=== PATIENT | female | born 1985 | race Caucasian/White ===

== ENCOUNTER 2017-10-21 18:10 | Emergency (ER) | payer OTHER | END 2017-10-21 19:03 | disposition home or self-care (01) | LOC: E/R 18:10 | DX: J02.0 Streptococcal pharyngitis (principal) | CPT/HCPCS: 99283; Z7502 ==

== ENCOUNTER 2018-10-22 19:05 | Emergency (ER) | payer OTHER ==
[2018-10-22 20:12] LABS: ADD MAN DIFF? NO
[2018-10-22 20:18] LABS: WHITE BLOOD COUNT 16.9 10^3/ul (4.8-10.8)
[2018-10-22 20:18] LABS: BASOPHIL # 0.1 10^3/ul (0.0-0.1); BASOPHILS % 0.4 % (0.0-2.0); HEMATOCRIT 39.5 % (37.0-47.0); HEMOGLOBIN 13.2 g/dl (12.0-16.0); MEAN CORPUSCULAR HEMOGLOBIN 29.7 pg (29.0-33.0); MEAN CORPUSCULAR HGB CONC 33.4 g/dl (32.0-37.0); MEAN CORPUSCULAR VOLUME 88.8 fl (82.0-101.0); MEAN PLATELET VOLUME 9.8 fl (7.4-10.4); MONOCYTES % 5.8 % (0.0-11.0); NEUTROPHIL # 14.7 10^3/ul (1.6-7.5); NEUTROPHILS % 86.9 % (39.0-77.0); PLATELET COUNT 291 10^3/UL (140-415); RED BLOOD COUNT 4.45 10^6/ul (4.20-5.40); RED CELL DISTRIBUTION WIDTH 12.4 % (11.5-14.5)
[2018-10-22] MEDS: CEFTRIAXONE 1 GM/50 ML (PMX) 50 ML IVPB (20:23)
[2018-10-22] MEDS: SODIUM CHLORIDE 0.9% 1L BAG IV* (20:24)
[2018-10-22] MEDS: ACETAMINOPHEN 325 MG TAB PO (20:24)
[2018-10-22 20:36] LABS: INR 0.95; PARTIAL THROMBOPLASTIN TIME 23.9 Sec (23.0-35.0); PROTIME 12.8 Sec (11.9-14.9)
[2018-10-22 20:40] LABS: ALANINE AMINOTRANSFERASE 18 IU/L (13-69); ALBUMIN/GLOBULIN RATIO 1.21; ALKALINE PHOSPHATASE 80 IU/L (42-121); ANION GAP 13 (5-13); ASPARTATE AMINO TRANSFERASE 26 IU/L (15-46); BILIRUBIN,INDIRECT 0.2 mg/dl (0-1.1); BILIRUBIN,TOTAL 0.2 mg/dl (0.2-1.3); BLOOD UREA NITROGEN 10 mg/dl (7-20); CALCIUM 9.4 mg/dl (8.4-10.2); CARBON DIOXIDE 21 mmol/L (21-31); CHLORIDE 106 mmol/L (97-110); CREATININE 0.67 mg/dl (0.44-1.00); Estimated GFR > 60 mL/min (>60); GLUCOSE 133 mg/dl (70-220); POTASSIUM 3.8 mmol/L (3.5-5.1); SODIUM 140 mmol/L (135-144); TOTAL PROTEIN 7.3 g/dl (6.1-8.1)
[2018-10-22 20:51] LABS: TROPONIN-I < 0.012 ng/ml (0.000-0.120)
== END 2018-10-22 21:31 | disposition home or self-care (01) ==
LOC: E/R 19:05
DX: J03.90 Acute tonsillitis, unspecified (principal); J02.9 Acute pharyngitis, unspecified; R07.9 Chest pain, unspecified
CPT/HCPCS: 36415; 71045; 80053; 84484; 85025; 85610; 85730; 87040; 93005; 96374; 99285-25